=== PATIENT | female | born 1955 | race Hispanic/Latino ===

== ENCOUNTER 2022-05-10 16:32 | Inpatient (IN) | payer OTHER, MEDICAID ==
[2022-05-10 17:23] LABS: #Monocytes 0.6 10x3/uL (0.0-1.1); #Neutrophils 5.1 10x3/uL (1.5-8.4); %Basophils 0.5 % (0.0-2.0); %Eosinophils 0.5 % (0.0-6.0); %Lymphocytes 29.5 % (18.0-47.0); %Monocytes 6.7 % (0.0-10.0); %Neutrophils 62.7 % (40.0-75.0); Hemoglobin 15.1 g/dL (12.0-15.5); Mean Corpuscular HGB CONC 35.4 g/dL (32.0-36.0); Mean Corpuscular Hemoglobin 30.1 pg (27.0-33.0); Mean Corpuscular Volume 85.1 fl (81.6-98.3); Mean Platelet Volume 10.5 fl (7.4-10.4); Platelet Count 283 10x3/uL (150-450); RBC Distribution Width 12.2 % (11.5-14.5); Red Blood Cell (RBC) Count 5.02 10x6/uL (3.90-5.03); White Blood Cell (WBC) Count 8.2 10x3/uL (3.5-10.5)
[2022-05-10] MEDS ORDERED: methylPREDNISolone Sod Succ/PF 125 MG/2 ML VIAL ONE (17:40)
[2022-05-10] MEDS ORDERED: Meclizine HCl 25 MG TAB ONE (17:40)
[2022-05-10] MEDS ORDERED: Metoclopramide HCl 10 MG/2 ML VIAL ONE (17:41)
[2022-05-10 17:45] LABS: ALT (SGPT) 22 U/L (8-55); AST (SGOT) 27 U/L (5-34); Albumin 4.5 g/dL (3.4-4.8); Alkaline Phosphatase 53 U/L (40-110); Anion Gap 17 mmol/L (10-20); BUN (Urea Nitrogen) 27 mg/dL (9.8-20.1); Bilirubin, Total 0.6 mg/dL (0.2-1.2); Calc. Creatinine Clearance 0 mL/min (70-130); Calcium 10.5 mg/dL (7.8-10.44); Carbon Dioxide 22 mmol/L (23-31); Chloride 98 mmol/L (98-107); Estimated GFR 57; Globulin 3.7 g/dL (2.4-3.5); Glucose 194 mg/dL (80-115); Magnesium 1.9 mg/dL (1.6-2.6); Potassium 4.4 mmol/L (3.5-5.1); Protein, Total 8.2 g/dL (5.8-8.1); Sodium 133 mmol/L (136-145)
[2022-05-10 19:03] LABS: Bilirubin Neg (Negative); Blood, Urine Negative (Negative); Clarity Sl. Cloudy (Clear); Glucose, Urine (Dipstick) Normal (Negative); Ketone, Urine 5 mg/dL (Negative); Leukocyte 500 (Negative); Nitrite Negative (Negative); Protein, Urine (Dipstick) Negative (Neg-Trace); Specific Gravity, Urine 1.015 (1.005-1.030); Urobilinogen Normal mg/dL (Less than 2)
[2022-05-10 19:14] LABS: RBC/HPF 0-3 HPF (0-3)
[2022-05-10 19:15] LABS: Bacteria/HPF 2+ HPF (None Seen); Squamous Epithelial 0-3 HPF (0-3); Transitional Epithelial 0-3 HPF (None Seen)
[2022-05-10] MEDS ORDERED: cefTRIAXone\\ROCEPHIN 1 GM VIAL ONE (20:04)
[2022-05-10] MEDS ORDERED: Bisacodyl 5 MG TAB PO PRN (21:19)
[2022-05-10] MEDS ORDERED: Dextrose 50% Abboject 50 ML SYRINGE SLOW IVP PRN (21:19)
[2022-05-10] MEDS ORDERED: Ondansetron PF 4 MG/2 ML Vial IVP PRN (21:19)
[2022-05-10] MEDS ORDERED: Calcium Carbonate 500 MG ChewTAB PO PRN (21:19)
[2022-05-10] MEDS ORDERED: Dextrose 5% in Water 1,000 ML IV PRN (21:19)
[2022-05-10] MEDS ORDERED: Lactated Ringer's 1,000 ML IV SCH (21:30)
[2022-05-10 23:35] VITALS: BMI 29.9
[2022-05-11] MEDS: HumaLOG 300 UNITS/3 ML VIAL SC PRN ×2 (00:13→11:10)
[2022-05-11 04:22] LABS: Hemoglobin 13.4 g/dL (12.0-15.5); Mean Corpuscular HGB CONC 36.2 g/dL (32.0-36.0); Mean Corpuscular Hemoglobin 30.5 pg (27.0-33.0); Mean Corpuscular Volume 84.3 fl (81.6-98.3); Platelet Count 248 10x3/uL (150-450); RBC Distribution Width 11.9 % (11.5-14.5); Red Blood Cell (RBC) Count 4.39 10x6/uL (3.90-5.03); White Blood Cell (WBC) Count 9.8 10x3/uL (3.5-10.5)
[2022-05-11 04:33] LABS: Anion Gap 14 mmol/L (10-20); BUN (Urea Nitrogen) 26 mg/dL (9.8-20.1); CK (CPK) 31 U/L (29-168); Calc. Creatinine Clearance 56 mL/min (70-130); Calcium 9.3 mg/dL (7.8-10.44); Carbon Dioxide 22 mmol/L (23-31); Cardiac Risk 1.4 (Less than 4.5); Chloride 106 mmol/L (98-107); Cholesterol 91 mg/dl (< 200 Desired); Estimated GFR 68; Glucose 266 mg/dL (80-115); HDL Cholesterol 63 mg/dL (>60 Neg Risk); LDL Cholesterol, Calculated 20 mg/dL; Magnesium 1.8 mg/dL (1.6-2.6); Potassium 4.1 mmol/L (3.5-5.1); Sodium 138 mmol/L (136-145); Triglycerides 42 mg/dL (Less than 150)
[2022-05-11 04:46] LABS: CRP (Inflammatory) Less than 0.50 mg/dL (= or < 0.5)
[2022-05-11 04:51] LABS: Thyroid Stimulating Hormone 1.973 uIU/mL (0.35-4.94)
[2022-05-11] MEDS: Levothyroxine Sodium 100 MCG TAB PO SCH (05:58)
[2022-05-11 06:56] LABS: Lymphocytes 8 % (21-51); Monocytes 1 % (0-10); Reactive Lymphocytes 2 % (0-10)
[2022-05-11 06:57] LABS: Diff Comment (RBC Morph SCRN) NORMAL; Neutrophil 89 % (42-75); Platelet Morphology Comment Appears Adequate
[2022-05-11 07:10] LABS: MDiff Complete? YES
[2022-05-11] MEDS ORDERED: metFORMIN 500 MG TAB PO SCH (08:00)
[2022-05-11] MEDS ORDERED: FLU VACC QS2022-23(65YR UP)/PF 240 MCG/0.7 ML SYRINGE IM ONE (09:00)
[2022-05-11] MEDS ORDERED: Lisinopril 20 MG TAB PO SCH (09:00)
[2022-05-11] MEDS ORDERED: Meclizine HCl 25 MG TAB PO SCH (09:00)
[2022-05-11] MEDS: Aspirin 81 mg Enteric Coated Tablet PO SCH (09:28)
[2022-05-11] MEDS: Enoxaparin Sodium 40 MG/0.4 ML SYRINGE SC SCH (09:29)
[2022-05-11] MEDS: cefTRIAXone\\ROCEPHIN 1 GM in Sodium Chloride 0.9% 100 ML IVPB SCH (09:29)
[2022-05-11] MEDS: Lantus 1000 UNITS/10 ML VIAL SC SCH (09:29)
[2022-05-11] MEDS: Polyethylene Glycol 3350 17 GM Packet PO SCH (11:45)
[2022-05-11] MEDS: Senokot S 8.6-50 MG TAB PO SCH ×2 (11:53→21:44)
[2022-05-11 13:04] LABS: Hemoglobin A1c 10.7 % (4.0-6.0)
[2022-05-11] MEDS ORDERED: Iopamidol 370 76% 100 ML VIAL ONE (13:30)
[2022-05-11] MEDS: Sodium Chloride 0.9% 1,000 ML IV SCH (14:54)
[2022-05-11] MEDS: Rosuvastatin 20 MG TAB PO SCH (21:44)
[2022-05-12] MEDS: HumaLOG 300 UNITS/3 ML VIAL SC PRN ×2 (00:18→17:30)
[2022-05-12] MEDS: Levothyroxine Sodium 100 MCG TAB PO SCH (06:42)
[2022-05-12] MEDS: cefTRIAXone\\ROCEPHIN 1 GM in Sodium Chloride 0.9% 100 ML IVPB SCH (09:24)
[2022-05-12] MEDS: Aspirin 81 mg Enteric Coated Tablet PO SCH (09:24)
[2022-05-12] MEDS: Lantus 1000 UNITS/10 ML VIAL SC SCH (09:24)
[2022-05-12] MEDS: Enoxaparin Sodium 40 MG/0.4 ML SYRINGE SC SCH (09:24)
[2022-05-12] MEDS: Senokot S 8.6-50 MG TAB PO SCH ×2 (09:25→22:10)
[2022-05-12] MEDS: Polyethylene Glycol 3350 17 GM Packet PO SCH (09:25)
[2022-05-12] MEDS: Meclizine HCl 12.5 MG TAB PO PRN (10:35)
[2022-05-12] MEDS: Sodium Chloride 0.9% 1,000 ML IV SCH (11:04)
[2022-05-12] MEDS: Rosuvastatin 20 MG TAB PO SCH (22:10)
[2022-05-13] MEDS: Sodium Chloride 0.9% 1,000 ML IV SCH (07:11)
[2022-05-13] MEDS: Levothyroxine Sodium 100 MCG TAB PO SCH (07:11)
[2022-05-13] MEDS: Meclizine HCl 12.5 MG TAB PO PRN (08:48)
[2022-05-13] MEDS: Senokot S 8.6-50 MG TAB PO SCH ×2 (08:48→21:39)
[2022-05-13] MEDS: cefTRIAXone\\ROCEPHIN 1 GM in Sodium Chloride 0.9% 100 ML IVPB SCH (08:48)
[2022-05-13] MEDS: Enoxaparin Sodium 40 MG/0.4 ML SYRINGE SC SCH (08:48)
[2022-05-13] MEDS: Polyethylene Glycol 3350 17 GM Packet PO SCH (08:48)
[2022-05-13] MEDS: Aspirin 81 mg Enteric Coated Tablet PO SCH (08:48)
[2022-05-13] MEDS: Lantus 1000 UNITS/10 ML VIAL SC SCH (08:48)
[2022-05-13] MEDS: HumaLOG 300 UNITS/3 ML VIAL SC PRN ×2 (11:40→16:39)
[2022-05-13] MEDS: Rosuvastatin 20 MG TAB PO SCH (21:39)
[2022-05-14 04:30] LABS: Anion Gap 11 mmol/L (10-20); BUN (Urea Nitrogen) 18 mg/dL (9.8-20.1); Calc. Creatinine Clearance 65 mL/min (70-130); Calcium 8.9 mg/dL (7.8-10.44); Carbon Dioxide 25 mmol/L (23-31); Chloride 107 mmol/L (98-107); Estimated GFR 81; Glucose 191 mg/dL (80-115); Potassium 3.8 mmol/L (3.5-5.1); Sodium 139 mmol/L (136-145)
[2022-05-14] MEDS: Sodium Chloride 0.9% 1,000 ML IV SCH (04:33)
[2022-05-14 04:48] LABS: #Basophils 0.1 10x3/uL (0.0-0.2); #Eosinphils 0.2 10x3/uL (0.0-0.5); #Monocytes 0.5 10x3/uL (0.0-1.1); %Basophils 0.9 % (0.0-2.0); %Eosinophils 3.7 % (0.0-6.0); %Lymphocytes 41.9 % (18.0-47.0); %Monocytes 6.9 % (0.0-10.0); %Neutrophils 46.4 % (40.0-75.0); Mean Corpuscular Volume 85.7 fl (81.6-98.3); Mean Platelet Volume 10.8 fl (7.4-10.4); Platelet Count 221 10x3/uL (150-450); RBC Distribution Width 12.3 % (11.5-14.5); Red Blood Cell (RBC) Count 4.33 10x6/uL (3.90-5.03); White Blood Cell (WBC) Count 6.5 10x3/uL (3.5-10.5)
[2022-05-14] MEDS: Acetaminophen 325 MG TAB PO PRN ×2 (05:41→08:41)
[2022-05-14] MEDS: Meclizine HCl 12.5 MG TAB PO PRN ×2 (05:42→08:38)
[2022-05-14] MEDS: Levothyroxine Sodium 100 MCG TAB PO SCH (05:42)
[2022-05-14] MEDS: Polyethylene Glycol 3350 17 GM Packet PO SCH (08:37)
[2022-05-14] MEDS: Enoxaparin Sodium 40 MG/0.4 ML SYRINGE SC SCH (08:37)
[2022-05-14] MEDS: Senokot S 8.6-50 MG TAB PO SCH (08:38)
[2022-05-14] MEDS: Aspirin 81 mg Enteric Coated Tablet PO SCH (08:38)
[2022-05-14] MEDS: cefTRIAXone\\ROCEPHIN 1 GM in Sodium Chloride 0.9% 100 ML IVPB SCH (08:38)
[2022-05-14] MEDS: Lantus 1000 UNITS/10 ML VIAL SC SCH (08:39)
[2022-05-14 11:25] VITALS: TEMP 98
[2022-05-14] MEDS: HumaLOG 300 UNITS/3 ML VIAL SC PRN (11:33)
[2022-05-14 15:15] VITALS: BP 147/75
== END 2022-05-14 16:45 | disposition home or self-care (01) | DRG 65 ==
LOC: CSHERS 16:32 → CSHTELE 23:12
PROVIDERS: ADMIT Student in an Organized Health Care Education/Training Program; ATTEND Student in an Organized Health Care Education/Training Program
DX: I63.89 Other cerebral infarction (principal); G81.94 Hemiplegia, unspecified affecting left nondominant side; N39.0 Urinary tract infection, site not specified; N17.9 Acute kidney failure, unspecified; Z20.822 Contact with and (suspected) exposure to COVID-19; K59.00 Constipation, unspecified; E78.5 Hyperlipidemia, unspecified; E03.9 Hypothyroidism, unspecified; E11.65 Type 2 diabetes mellitus with hyperglycemia; I16.0 Hypertensive urgency; E83.52 Hypercalcemia; I12.9 Hypertensive chronic kidney disease with stage 1 through stage 4 chronic kidney disease, or unspecified chronic kidney disease; E11.22 Type 2 diabetes mellitus with diabetic chronic kidney disease; N18.9 Chronic kidney disease, unspecified; Z79.890 Hormone replacement therapy; Z79.4 Long term (current) use of insulin; Z79.84 Long term (current) use of oral hypoglycemic drugs; Z79.899 Other long term (current) drug therapy
CPT/HCPCS: 36415; 36416; 70450; 70496; 70498; 70553; 80048; 80053; 80061; 81003; 81015; 82550; 82607; 83036; 83735; 84100; 84443; 85025; 85652; 86140; 87086; 93005; 93306; 94760; 96374; 96375; J0696; J1650; J1815; J2405; J2765; J2930; J3490; J7050; J7120; Q9967; U0003; U0005

== ENCOUNTER 2022-09-12 14:07 | Outpatient (CLI) | payer MEDICARE, OTHER ==
[~2022-09-12 14:07] MED LIST: Magnevist 469MG/ML 20 ML VIAL ONE
== END 2022-09-12 14:08 | disposition home or self-care (01) ==
LOC: CSHMRI 14:07
PROVIDERS: ATTEND Otolaryngology Plastic Surgery within the Head & Neck
DX: H81.4 Vertigo of central origin (principal)
CPT/HCPCS: 70553; 82565